=== PATIENT | female | born 1950 | race Caucasian/White ===

== ENCOUNTER 2017-02-15 09:22 | Outpatient (CLI) | payer OTHER ==
--- NOTE | 2017-02-15 10:53 | DIAGNOSTIC IMAGING REPORT ---
PROCEDURE: DEXA BONE DENSITY STUDY CLINICAL INDICATION: Screening, taking vitamin D and calcium supplementation. COMPARISON: None. FINDINGS: LUMBAR SPINE: Bone mineral density 0.832 g/cm2, T score , -2.0 osteopenia . LEFT HIP: Bone mineral density 0.733 g/cm2, T score -1.7 osteopenia LEFT FEMORAL NECK: Bone mineral density 0.701 g/cm2, T score -1.3 osteopenia FRACTURE RISK CALCULATION ( when applicable): 10-year fracture risk of a major osteoporotic fracture 8.5% and of a hip fracture 0.8% (T score greater or equal to -1.0 to: NORMAL) (T score from -1.1 to -2.4: OSTEOPENIA) (T score ess than or equal to -2.5: OSTEOPOROSIS) IMPRESSION: 1. Osteopenia mildly elevates the patient's 10-year fracture risk as described.
--- NOTE | 2017-02-15 12:29 | DIAGNOSTIC IMAGING REPORT ---
PROCEDURE: MG BILATERAL SCREENING W/CAD INDICATION: Screening. Family history breast carcinoma (sister, mother with Paget's disease). TECHNIQUE: Bilateral CC and MLO digital views. COMPARISON: Compared to 05/22/2012, 10/17/2010, and 11/20/2008. FINDINGS: Computer-aided detection applied. Mildly to moderately dense. No change. IMPRESSION: 1. Negative mammogram RESULT CODE: 1- Negative. A. A negative report should not delay biopsy if a dominant or clinically suspicious mass is present. 10-15% of cancers are not identified by x-ray. B. A negative report may reinforce clinical impression. C. Adenosis and dense breasts may obscure an underlying neoplasm. D. False positive reports average 6-10%. E.. A yearly screening mammogram is recommended. A reminder letter will be scheduled.
== END 2017-02-15 23:00 | disposition home or self-care (01) ==
LOC: MAM SRH 09:22
DX: Z12.31 Encounter for screening mammogram for malignant neoplasm of breast (principal); M85.89 Other specified disorders of bone density and structure, multiple sites